=== PATIENT | male | born 1970 | race Caucasian/White ===

== ENCOUNTER 2016-08-01 07:01 | Outpatient (CLI) | payer BC ==
[~2016-08-01] VITALS: Ht 185.4 cm; Wt 125.3 kg
--- NOTE | ~2016-08-01 | OR ---
PATIENT'S NAME: DANIS BRUCE [facility] AGE: 46 Y [address] ROOM: [place] [address] LOCATION: GPCU ADMIT DATE: 08/01/2016 OR/Procedure Report DISCHARGE DATE: FAMILY PHYSICIAN: TYRESE SCHMIDT MD ATTENDING PHYSICIAN: Danis Deluna SURGEON: Danis Deluna DO ASSISTANT PROFESSOR IN FAMILY STUDIES: DATE OF PROCEDURE: 08/01/2016 PREOPERATIVE DIAGNOSIS: Questionable Brugada syndrome with history of syncopal episode. POSTOPERATIVE DIAGNOSIS: Questionable Brugada syndrome with history of syncopal episode. PROCEDURE PERFORMED: Insertion of loop recorder. BRIEF HISTORY: Mr. Bruce is a 46-year-old white male with the above-noted diagnosis. He has been brought to the label stamper today for insertion of his loop recorder. DESCRIPTION OF PROCEDURE: He was sterilely prepped over the anterior chest wall. At the level of the angle of Thai and approximately 2 fingerbreadths lateral to the shamika-sternum, 1% lidocaine was infiltrated, and then the WhodiniQ loop recorder device was inserted with the package inserts. The patient tolerated the procedure well. The incision was closed with 2 interrupted 4-0 Vicryl, and a pressure dressing was applied. The patient tolerated the procedure well and was transferred to the outpatient recovery area in stable condition. DANIS DELUNA DO MCB/modl /[id number] CC: Tyrese Schmidt MD d: 08/01/16 1334 t: 08/01/16 1411, OPERATIVE SUMMARY
[~2016-08-01 07:01] MED LIST: BENICAR HCT 401 EAC1 PO; PRILOSEC OTC20 MG PO
[2016-08-01 07:51] LABS: INR - (THERAPEUTIC) 1.1 (0.9-1.1); PROTIME 11.4 SECONDS (9.6-11.1)
[2016-08-01 07:56] LABS: ALBUMIN 4.2 gm/dL (3.5-5.0); ANION GAP 11.6 (10.0-19.0); CALCIUM 8.7 mg/dL (8.5-10.5); CREATININE 1.3 mg/dL (0.6-1.3); PHOSPHORUS 2.8 mg/dL (2.5-4.9); POTASSIUM 4.6 mMol/L (3.7-5.1)
[2016-08-01] MEDS ORDERED: NORCO 5-325 TA1 EACH PO (09:42)
== END 2016-08-01 10:20 | disposition disaster alternative care site (69) ==
LOC: GPCU 07:01 → GCAT 07:01
PROVIDERS: Thoracic Surgery (Cardiothoracic Vascular Surgery)
PROC: 0JH602Z Insertion of Monitoring Device into Chest Subcutaneous Tissue and Fascia, Open Approach (ICD-10-PCS; principal; 2016-08-01)
DX: R55 Syncope and collapse (principal); I10 Essential (primary) hypertension; F17.220 Nicotine dependence, chewing tobacco, uncomplicated; K21.9 Gastro-esophageal reflux disease without esophagitis; E78.5 Hyperlipidemia, unspecified; Z79.899 Other long term (current) drug therapy; Z82.49 Family history of ischemic heart disease and other diseases of the circulatory system
CPT/HCPCS: C1764; J0690; J2001; J3010; J7120

== ENCOUNTER → 2016-10-03 | Outpatient (CLI) | payer BC ==
[~2016-10-03] MED LIST changes: +ASPIRIN (CHILDR81 MG PO; +LIPITOR80 MG PO; +NORCO 5-325 TA1 EACH PO; +ZEBETA5 MG PO
--- NOTE | ~2016-10-03 | OR ---
PATIENT'S NAME: MARY KAY BRUCE [facility] AGE: 46 Y [address] ROOM: [place] [address] LOCATION: [facility] ADMIT DATE: 10/03/2016 OR/Procedure Report DISCHARGE DATE: FAMILY PHYSICIAN: TYRESE HARRIS MD ATTENDING PHYSICIAN: Yas Pritchett SURGEON: Yas Pritchett MD SUPERINTENDENT OF GENERATION: DATE OF PROCEDURE: 10/07/2016 PROCEDURE PERFORMED: Tilt-table study. INDICATION: Situational syncope. DESCRIPTION OF PROCEDURE: After obtaining informed consent, the patient was brought to the Non-invasive Lab in an empty stomach. The patient rested for about 20 minutes before being tilted. Initially, the patient had an IV access obtained before the rest. Then, he was tilted after 20 minutes of resting to about 70 degrees. He was passively tilted for twenty minutes with no occurrence of any of his symptoms, and his vital signs and heart rate were very stable. At this point, the patient was placed flat. After explaining to the patient and listening to the carotid, which revealed no evidence of any bruit, I did a carotid sinus massage on both sides. There were no significant pauses noted with the carotid sinus massage. The patient was then again tilted up to about 70 degrees, and nitroglycerin 0.4 mg sublingually was administered. Another 20 minutes of tilting followed with no significant problems with his blood pressure, heart rate, or re- occurrence of his symptoms. CONCLUSION: 1. Negative tilt-table study for situational syncope with a moderately aggressive protocol. 2. There was no evidence for the presence of carotid sinus hypersensitivity. MD CHRISTY NEW/charmainel /[id number] d: 10/07/162014 t: 10/14/16 1215, OPERATIVE SUMMARY
== END | disposition disaster alternative care site (69) ==
LOC: GCAR 08-29 13:00
PROC: 4A02XFZ Measurement of Cardiac Rhythm, External Approach (ICD-10-PCS; principal; 2016-10-03)
PROC: 4A03XB1 Measurement of Arterial Pressure, Peripheral, External Approach (ICD-10-PCS; 2016-10-03)
DX: R55 Syncope and collapse (principal)

== ENCOUNTER 2016-10-23 11:01 | Observation (INO) | payer BC ==
[~2016-10-23] VITALS: Ht 185.4 cm; Wt 127.0 kg
--- NOTE | ~2016-10-23 | HP ---
PATIENT'S NAME: MARY KAY BRUCE [facility] AGE: 46 Y [address] ROOM: [address] [address] LOCATION: GPCU ADMIT DATE: 10/23/2016 History & Physical DISCHARGE DATE: FAMILY PHYSICIAN: TYRESE SCHMIDT MD ATTENDING PHYSICIAN: Yas Pritchett DATE OF SERVICE: Patient of: Dr. Tyrese Schmidt. HISTORY OF PRESENT ILLNESS: Mr. Bruce is a 46-year-old male patient, who is being worked up for syncopal spells which occurs almost on a situational basis. His workup included a tilt-table study, carotid sinus massage, EP study, and also loop recorder placement, and he has not had a spell since February. He has been doing well and, in fact, I saw him just within the last 24 hours in the office to discuss with him the results of his tilt-table study. He was consistently in the tachycardic range with the heart rate in the 110s. Typically, he runs a heart rate of 90s and because of the increase in heart rate, I did get a BNP, D-dimer, and TSH which were all normal. His EKG did not show any acute changes. The plan was to have him completely stop chewing tobacco and see if that makes a difference. Yesterday evening, he played golf and afterwards, he had a discomfort in the middle of his chest with some pressure in the left parasternal area. Then, he also felt almost like a sharp jabbing [id number] pain in the back exactly in the midline. There was no other significant radiation, except maybe to the left shoulder. This was about 4 on a scale of 1-10, and it lasted him all night and he came to the emergency room this morning because it was not going away. Evaluation in the emergency room included ruling him out for SC. He had ruled out for pulmonary emboli. His CT scan, however, showed some calcification of his coronary arteries. His pain did not completely resolve and currently still rates the pain at about 4 on a scale of 1-10. Interestingly, it is zero if he is completely still. If he moves in any direction, then he notes the pain. There are no associated features like shortness of breath, sweating, or nausea. The patient does not routinely exercise, but he is relatively active. He states that in his line of work, he walks at least a mile a day with no problems with shortness of breath. He has been in functional class II with no paroxysmal nocturnal dyspnea or orthopnea. There is no lightheadedness or dizziness. He has no palpitations or ankle swelling. The patient has history of hypertension, and he chews tobacco. There is no history of diabetes, elevated cholesterol, or family history of premature coronary artery disease. PATIENT'S NAME: MARY KAY BRUCE [facility] AGE: 46 Y [address] ROOM: [address] [address] [facility] ADMIT DATE: 10/23/2016 History & Physical DISCHARGE DATE: FAMILY PHYSICIAN: TYRESE SCHMIDT MD ATTENDING PHYSICIAN: Yas Pritchett There is no prior history of SC or angina or nitroglycerin use. There is no history of rheumatic fever, heart murmur, heart failure, dilated or enlarged heart, or any diagnosed cardiac arrhythmias. MEDICATIONS: His usual medications are: 1. Benicar hydrochlorothiazide 40/25 once a day. 2. Prilosec 40 mg a day. ALLERGIES: NO KNOWN DRUG ALLERGIES. PAST MEDICAL HISTORY: 1. GERD. 2. Low testosterone and low libido for which he used to be on testosterone replacement therapy. SOCIAL HISTORY: The patient is . He is a rancher. His appetite and weight are stable. Sleep is normal. FAMILY HISTORY: No premature coronary artery disease. REVIEW OF SYSTEMS: 1. There is a possibility that he may be using some alcohol on a regular basis, whether he abuses it or not is difficult to say because he only uses about one or two drinks a day off and on. 2. Intermittent joint pains. 3. Moderate weight gain. PHYSICAL EXAMINATION: VITAL SIGNS: On examination, his blood pressure is 140/80, heart rate is in the 80s, respiration is 16, afebrile. HEENT: Normal. NECK: Supple with no JVD, thyromegaly, lymphadenopathy, or carotid bruit. HEART: PMI is not well located. First and second heart sounds are regular. There are no added sounds or murmurs. CHEST: Clear to auscultation. ABDOMEN: Soft, obese. Bowel sounds are normally present. EXTREMITIES: Reveal no edema. CENTRAL NERVOUS SYSTEM: Overall appears to be intact. PATIENT'S NAME: MARY KAY BRUCE [facility] AGE: 46 Y [address] ROOM: [address] [place], [place] [address] LOCATION: [facility] ADMIT DATE: 10/23/2016 History & Physical DISCHARGE DATE: FAMILY PHYSICIAN: TYRESE SCHMIDT MD ATTENDING PHYSICIAN: Yas Pritchett ASSESSMENT: A 46-year-old male patient with history of syncope which is being worked up and currently having problems with chest pains. He has had about 5 separate syncopal spells. The patient's current chest pain is atypical in nature. RECOMMENDATIONS: We will rule him out for SC and do a stress Cardiolite study. His CT chest for PE protocol did identify some calcium in his coronary arteries, consistent with having underlying CAD. With the stress test, we will be able to tell whether he has any significant coronary artery disease or not hopefully. If his stress test is strongly positive, he should have a cardiac catheterization. MD CHRISTY NEW/bobbi /[id number] D: [id number] T: [id number] HISTORY & PHYSICAL
--- NOTE | ~2016-10-23 | ESTC ---
Cardiac Perfusion Imaging Demographics Patient Name JANIS Kapadia Gender Male Patient Number [id number] Race Visit Number [id number] Ethnicity Corporate ID Room Number G6303 Accession Number [id number] Height 73 inches Date of 1970 Weight 279 pounds Interpreting Shreyas Soernson Date of study 10/24/2016 Physician Supervising /MARITZA PALACIOS Technologist Janna Andrade MD Ordering Physician Stress library media technician Stress ECG Reading Arben Tyler Nurse Navi Smith Physician SPEECH INSTRUCTOR enrollment clerk Procedure Type: Nuclear Stress Test:Exercise, Cardiolite Stress Test Procedure Start time: 10/24/2016 00:00 Indications: Hypertension and Chest pain. Risk Factors The patient risk factors include:obesity, physical activity, treated hypertension and family history of premature CAD. Conclusions Summary DTS:7. TID:0.78. Normal myocardial perfusion imaging. LVEF:63%. Normal WM. Stress Protocols Resting ECG RSR without ST or T wave changes. Resting HR:117 bpm Resting BP:164/78 mmHg Pre-stress physical exam: A/O. Lungs CTA. CV Sinus Tachycardia. No complaints of chest pain or shortness of breath currently. Stress Protocol:Exercise Peak HR:171 bpm HR response: Appropriate Peak BP:198/88 mmHg BP response: Appropriate Predicted HR: 176 bpm HR/BP product:40394 % of predicted HR: 97 Test duration:07:18 min Reason for termination:Target heart rate Exercise effort:Good Perceived exertion:20 ECG Findings Sinus tachycardia. Arrhythmias No rhythm abnormality. Symptoms Was able to exercise without difficulty. At 6 minutes cardiolite injected. Had been able to talk with walking had sudden increase in shortness of breath. No chest pain was reported. Recovered within 3-4 min. BP came down quickly after stress stopped. Became dizzy at 7 :min. Resolved with rest. Stress Interpretation Appropriate hemodynamic response to exercise. No significant ST-T wave changes with exercise. EKG portion is negative for ischemia by diagnostic criteria. The Cantu Treadmill score was 7 .This corresponds to a low risk stress test. Stress supervision and interpretation provided by Dennise Theodore APRN . Imaging Results LV size:Normal Normal LV function Imaging Protocols Rest Stress Isotope:Tc99m Sestamibi IV Isotope: Tc99m Sestamibi IV Isotope dose:16.1 mCi Isotope dose:43.9 mCi Date:10/24/2016 07:23 Date:10/24/2016 09:18 Technique: SPECT Technique: Gated Supine SPECT Supine IV remains in place after procedure. Scan Time:45-60 minutes post Scan Time:45-60 minutes post injection injection Medical History Admission Data Admission date: 10/23/2016 Admission Time: 14:25 Hospital Status: Inpatient. Signatures dtt: Yas Pritchett dtd: 10/24/16 0000 Physician Self Edit
--- NOTE | ~2016-10-23 | ER ---
PATIENT'S NAME: MARY KAY BRUCE [facility] AGE: 46 Y [address] ROOM: [place] [address] LOCATION: GPCU ADMIT DATE: 10/23/2016 ER/Outpatient Report DISCHARGE DATE: FAMILY PHYSICIAN: TYRESE SCHMIDT MD ATTENDING PHYSICIAN: Yas Pritchett Time of Arrival: 1101 hours. Time of Evaluation: 1110 hours. IDENTIFICATION: A 46-year-old male. CHIEF COMPLAINT: Chest pain. HISTORY OF PRESENT ILLNESS: The patient is a 46-year-old male. He has apparently had some heart issues, and he has been seen at [facility], been seen by Dr. Ramírez, been seen at [facility] by Dr. Melendez and then most recently been seen by Dr. Prithcett. He had a loop recorder placed per Dr. Titus in July. He had a tilt-table at Dr. Pritchett, that was negative on October 03. It sounds like he has had an EP study at [facility]. Last evening while he was golfing, he again noticed some left chest tightening and pain between his shoulder blades, that he describes as feeling like an ice pick. The symptoms persisted all night. The pain radiated down both arms. Last night, he felt short of breath. Currently denies any shortness of breath. He is not lightheaded or dizzy and does not have any nausea or vomiting. ALLERGIES: NO KNOWN DRUG ALLERGIES. CURRENT MEDICATIONS: 1. Benicar 60 mg. 2. Prilosec [id number]. MEDICAL PROBLEMS: Hypertension, low testosterone, obesity, history of syncopal episodes. PRIOR SURGERIES: Loop recorder, umbilical hernia. FAMILY HISTORY: Positive for premature coronary artery disease. SOCIAL HISTORY: PATIENT'S NAME: MARY KAY BRUCE [facility] AGE: 46 Y [address] ROOM: [place] [address] LOCATION: GPCU ADMIT DATE: 10/23/2016 ER/Outpatient Report DISCHARGE DATE: FAMILY PHYSICIAN: TYRESE SCHMIDT MD ATTENDING PHYSICIAN: Yas Pritchett The patient is . Lives in [place]. Dr. Schmidt is his primary care physician. Tobacco use, he chews one can of tobacco per day. Alcohol use, 2 beers per day. Drug use, denies. REVIEW OF SYSTEMS: All systems reviewed and negative other than what is noted in the HPI. PHYSICAL EXAMINATION: VITAL SIGNS: Height 6 feet 1 inch, weight 125.4 kg, blood pressure 187/103, pulse 106, respirations 18, temp 98.2, and saturations 97% on room air. GENERAL: A 46-year-old male, in no acute distress. Right now, he is not having any chest pain, has resolved pain in his back. HEENT: Head: Normocephalic atraumatic. Ears: TMs translucent both eyes. Eyes: Pupils equal and reactive to light and accommodation. Extraocular movements intact. Nose: Mucosa pink. No lesions or drainage. Mouth: No lesions. Pharynx benign. NECK: Supple. No lymphadenopathy. LUNGS: Clear to auscultation. Breath sounds are equal. HEART: Regular rate and rhythm. ABDOMEN: Protuberant. Bowel sounds present. Soft, nondistended, nontender. No chest wall tenderness. SKIN: [place], warm, and dry. No lesions or rashes noted. NEURO: The patient is alert and oriented x4. Cranial nerves 2 through 12 grossly intact. Motor strength 5/5 throughout. Sensation is intact to light touch. He has a trace of lower extremity edema. No calf tenderness. LABORATORY DATA AND X-RAYS: Chest x-ray, loop recorder left upper chest, no acute findings, pending Radiology over-read. EKG: Sinus rhythm at 98 beats per minute, no acute ST elevation or depression. Blood pressure on recheck came down to 150/85. Sodium 127, potassium 4.2, chloride 90, CO2 of 25, BUN 4, creatinine 1.0, blood sugar 116. Liver enzymes normal. Magnesium 2. CK 358, CK-MB 2.9, troponin I less than 0.040, ProBNP 41. D-dimer 0.19. Hemoglobin 16.1, hematocrit 46.6, platelets 235, white count 7.5, normal differential. INR 1.08. CT angiogram, no thoracic aortic aneurysm or dissection, coronary artery calcifications are present, no mediastinal hematoma. Lungs are clear with no acute infiltrate. IMPRESSION: 1. Chest pain. The patient was given 4 baby aspirin and one sublingual nitroglycerin, which really did not change the pain, which was now more between his shoulder blades. CTA is negative. The patient will be admitted per Dr. Pritchett for serial EKG and enzymes and then stress testing. 2. History of syncopal episodes. Currently under investigation. He has a PATIENT'S NAME: MARY KAY BRUCE [facility] AGE: 46 Y [address] ROOM: [place] [address] LOCATION: [facility] ADMIT DATE: 10/23/2016 ER/Outpatient Report DISCHARGE DATE: FAMILY PHYSICIAN: TYRESE SCHMIDT MD ATTENDING PHYSICIAN: Yas Pritchett loop recorder. Tilt-table was negative. 3. Hyponatremia. The patient was given 1 L of normal saline over 1 hour in the emergency room. 4. Hypertension. REBEKAH MONTIEL MD CAR/modl /[id number] d: 10/23/162149 t: 10/24/16 0712, OUTPATIENT REPORT
--- NOTE | ~2016-10-23 | ECHO ---
Transthoracic Echocardiography Report (TTE) Demographics Patient Name MARY KAY BRUCE Date of Study 10/24/2016 D Patient Number [id number] Visit Number [id number] Date of 1970 Room Number G6303 Gender Male Number Age 46 year(s) Referring Shreyas Sorenson Advertising Production Manager Giorgio Sutton RDCS, Physician RVT Roxana Kapadia MD Physician Interpreting Shreyas Sorenson Government Operations Consultant Physician Supervising Ordering Shreyas Sorenson MD/MLP Physician Nurse Stress Stainless Steel Finisher Conclusions Contractility Score Summary Normal Left Ventricular contractility was noted. Summary The estimated left ventricular ejection fraction is 60-65%. No significant valvular abnormalities. Procedure Type of Study TTE procedure:2D Echocardiogram. Procedure Date Date: 10/24/2016 Start: 02:38 PM Study Location: Inpatient Portable Technical Quality: Adequate visualization Indications:Chest pain. Appropriate Use Criteria: 9 Patient Status: Routine HR: 100 bpm BP: 162/104 mmHg Allergies - No known allergies. M-Mode/2D Measurements LV Diastolic Dimension: 4.75 cm LV Systolic Dimension: 2.76 cm LV Septum Diastolic: 0.93 cm LV PW Diastolic: 0.97 cm Cardiac Output: 7.38 l/min LA Dimension: 3.8 cm LVOT: 2 cm LVOT VTI: 23.5 cm RV Base: 3.16 cm LV Stroke volume: 73.79 ml RV Length: 7.82 cm Doppler Measurements AV Peak Velocity: 1.24 m/s MV Peak E-Wave: 0.65 m/s AV Peak Gradient: 6.15 mmHg MV Peak A-Wave: 0.82 m/s AV Mean Gradient: 4 mmHg MV E/A Ratio: 0.79 LVOT Peak Velocity: 1.2 m/s MV P1/2t: 63 msec TR Gradient:8.64 mmHg PV Peak Velocity: 1.06 m/s Estimated RAP:5 mmHg PV Peak Gradient: 4.49 mmHg Estimated RVSP: 14 mmHg Estimated PASP: 13.64 mmHg E' Septal Velocity: 0.07 m/s A' Septal Velocity: 0.11 m/s E' Lateral Velocity: 0.09 m/s A' Lateral Velocity: 0.08 m/s Findings Left Ventricle Normal left ventricle size and function. Right Ventricle Normal right ventricle structure and function. Left Atrium Normal left atrial size. Right Atrium Normal right atrial size. Mitral Valve Normal mitral valve structure and function. Aortic Valve Normal aortic valve structure and function. Tricuspid Valve Normal tricuspid valve structure and function. Pulmonic Valve Normal pulmonic valve structure and function. Pericardial Effusion No evidence of pericardial effusion. Miscellaneous Visualized portions of the aortic root and ascending aorta appear normal in size. Pleural Effusion No evidence of pleural effusion. Contractility Score LV regional wall motion:(0-Non visualized 1-Normal 2-Hypokinesis 3-Akinesis 4-Dyskinesis 5-Aneurysm) Signature dtt: Yas Pritchett dtd: 10/24/16 1438 Physician Self Edit
[~2016-10-23 11:01] MED LIST changes: -ASPIRIN (CHILDR81 MG PO; -LIPITOR80 MG PO; -ZEBETA5 MG PO
[2016-10-23 11:41] LABS: BASOPHIL # 0.1 K/uL (0.0-0.2); BASOPHIL % 0.8 %; EOSINOPHIL # 0.1 K/uL (0.0-0.5); EOSINOPHIL % 1.3 %; HEMATOCRIT 46.6 % (37.0-53.0); HEMOGLOBIN 16.1 g/dL (12.0-17.0); IMMATURE GRANULOCYTE % 0.5 %; LYMPHOCYTE % 13.4 %; MCHC 34.5 gm/dL (32.0-36.5); MONOCYTE # 0.9 K/uL (0.0-1.0); MONOCYTE % 11.4 %; MPV 9.7 fl (9.4-12.4); NEUTROPHIL # (ANC) 5.4 K/uL (1.4-9.0); NEUTROPHIL % 72.6 %; NRBC % 0 /100WBC (0-0.00); PLATELET COUNT 235 K/uL (150-450); RBC 5.55 M/uL (4.00-6.00); RDW-CV 15.2 % (11.9-14.6); WBC 7.5 K/uL (4.0-11.0)
[2016-10-23 11:56] LABS: INR - (THERAPEUTIC) 1.08 (0.92-1.07); PROTIME 11.4 SECONDS (9.8-11.4); PTT 28 SECONDS (25-32)
[2016-10-23 12:00] LABS: ALK PHOS 36 IU/L (33-138); ALT 41 IU/L (12-78); BLOOD UREA NITROGEN 4 mg/dL (6-24); CALCIUM 8.7 mg/dL (8.5-10.5); CHLORIDE 90 mMol/L (96-110); CO2 25 mMol/L (22-32); CPK 358 IU/L (35-332); ESTIMATED GFR (MDRD EQUATION) > 60; SODIUM 127 mMol/L (135-145); TOTAL BILIRUBIN 0.7 mg/dL (0.0-1.5); TOTAL PROTEIN 7.5 g/dL (6.0-8.4)
[2016-10-23 12:15] LABS: ANION GAP 16.2 (10.0-19.0); AST 29 IU/L (10-40); POTASSIUM 4.2 mMol/L (3.7-5.1)
--- NOTE | 2016-10-23 16:40 | NUR ---
Pt is 46 y/o male admit for chest pain for . Pt alert and oriented x3. Resides at home with his family. Hx htn,syncope-has loop recorder,low testosterone,ED. No allergies. Came through ED. States he felt chest tightness while playing golf last night. Then had some tightness and numbness into both arms. He saw yesterday for a follow up appt after having a tilt table test and had some lab work done because his resting pulse was 118. Enzymes and EKG were within normal limits.
--- NOTE | 2016-10-23 17:17 | NUR ---
Significant Event: A/Ox3. [id number]. P-90-100s. Afebrile. Room air. Sternal/mid upper back pain/pressure 08/25. Denies SOB. R) hand IV saline locked. Up with SBA. Patient has loop recorder in L) chest due to frequent syncopal episodes. Awaiting Dr. Carmichael for admission orders.
--- NOTE | 2016-10-24 05:03 | NUR ---
A/O. HR 90-100s. SBP 140-160s. AFEBRILE. ROOM AIR. XANAX AND THEN AMBIEN GIVEN FOR INSOMNIA. DENIES NEED FOR PAIN MEDICATION. UP ADLIB IN ROOM. NPO SINCE AK FOR TREDMILL STESS TEST TODAY. CADIAC ENZYMES NEG.
[2016-10-24 12:34] LABS: CALCIUM 9.3 mg/dL (8.5-10.5); CHLORIDE 95 mMol/L (96-110); CO2 30 mMol/L (22-32); CREATININE 1.1 mg/dL (0.6-1.3); ESTIMATED GFR (MDRD EQUATION) > 60; POTASSIUM 4.3 mMol/L (3.7-5.1)
[2016-10-24 12:35] LABS: ANION GAP 13.3 (10.0-19.0); BLOOD UREA NITROGEN 8 mg/dL (6-24); SODIUM 134 mMol/L (135-145)
--- NOTE | 2016-10-24 17:07 | NUR ---
Significant Event: A/Ox3. [id number].P-90-110s. Afebrile. Room air. Stress test was negative. Echo done. Up with SBA. Possibly discharing home this evening.
[2016-10-24] MEDS ORDERED: ASPIRIN (CHILDR81 MG PO (17:50)
[2016-10-24] MEDS ORDERED: ZEBETA5 MG PO (17:50)
[2016-10-24] MEDS ORDERED: LIPITOR80 MG PO (17:52)
--- NOTE | 2016-10-24 18:01 | NUR ---
Discharge Note: Patient verblized understanding of discharge teaching. He was intructed to make a follow up appointment with Dr. Carmichael in 2 Weeks. He refused education on new medication because of hurry to go and stated his pharmacy would get him information. Not eligible for pnemonia vaccination,.
== END 2016-10-24 18:04 | disposition disaster alternative care site (69) ==
LOC: GMED 11:01 → GPCU 14:25
PROVIDERS: Family Medicine; ADMIT Internal Medicine Interventional Cardiology
DX: R07.89 Other chest pain (principal); I10 Essential (primary) hypertension; F17.220 Nicotine dependence, chewing tobacco, uncomplicated; K21.9 Gastro-esophageal reflux disease without esophagitis; E87.1 Hypo-osmolality and hyponatremia; E66.9 Obesity, unspecified; Z68.36 Body mass index [BMI] 36.0-36.9, adult; Z98.890 Other specified postprocedural states; Z79.899 Other long term (current) drug therapy
CPT/HCPCS: A9500; J7030; Q9967